=== PATIENT | male | born 1950 | race Caucasian/White ===

== ENCOUNTER 2024-06-16 20:26 | Inpatient (IN) | payer OTHER ==
[~2024-06-16] VITALS: Ht 175.3 cm; Wt 58.1 kg
[~2024-06-16 20:26] MED LIST: ACET-9525 PO; LEVO0.0211 PO; METH100S16 SL; MORP10SO PO; ONDA4TAB12 PO
[2024-06-16 20:51] VITALS: BP 101/53; PULSE 86; RESP 16; TEMP 97.3; O2SAT 99
[2024-06-16] MEDS: NACL 0.9% 1,000 ML IV ONE (23:51)
[2024-06-17 00:10] LABS: BASOPHILS % (AUTO) 0.3 % (0.0-2.0); EOSINOPHILS % (AUTO) 0.4 % (0.0-4.0); HEMATOCRIT 28.7 % (36-52); HEMOGLOBIN 9.7 g/dL (12.0-18.0); LYMPHOCYTES # (AUTO) 1.1 K/uL (2.0-11.5); LYMPHOCYTES % (AUTO) 10.5 % (20.5-51.1); MEAN CORPUSCULAR HEMOGLOBIN 31 pg (27-31); MEAN CORPUSCULAR HGB CONC 34 g/dL (33-37); MEAN CORPUSCULAR VOLUME 92.6 fL (80-94); MONOCYTES # (AUTO) 1.2 K/uL (0.8-1.0); MONOCYTES % (AUTO) 11.2 % (1.7-9.3); NEUTROPHILS % (AUTO) 77.6 % (42.2-75.2); PLATELET COUNT (AUTO) 176 K/uL (140-450); RED CELL DISTRIBUTION WIDTH 29.9 % (11.6-13.7); WHITE BLOOD COUNT (AUTO) 10.3 K/uL (4.8-10.8)
[2024-06-17 00:31] LABS: ANION GAP 8.5 (8-16); CARBON DIOXIDE 29.3 mmol/L (21-32); CHLORIDE 96 mmol/L (98-107); CREATININE 0.8 mg/dL (0.6-1.3); GLUCOSE 140 mg/dL (74-106); SODIUM SERUM 131 mmol/L (136-145); UREA NITROGEN, BLOOD 16 mg/dL (7-18)
[2024-06-17 00:35] LABS: POTASSIUM 2.8 mmol/L (3.5-5.1)
[2024-06-17 00:39] LABS: ALBUMIN 2.1 g/dL (3.4-5.0); BILIRUBIN,DIRECT 0.2 mg/dL (0.0-0.3); TOTAL BILIRUBIN 0.4 mg/dL (0.0-1.0); TOTAL PROTEIN, SERUM 5.9 g/dL (6.4-8.2)
[2024-06-17 00:51] LABS: LACTIC ACID 2.5 mmol/L (0.4-2.0)
[2024-06-17] MEDS: POTASSIUM PHOSPHATE 15 MM in NACL 0.9% 250 ML IV ONE (01:05)
[2024-06-17] MEDS ORDERED: METHOCARBAMOL SL PRN ×2 (06:00→06:15)
[2024-06-17] MEDS ORDERED: ACETAMINOPHEN 325 MG TAB PO PRN (06:00)
[2024-06-17] MEDS ORDERED: ONDANSETRON 4 MG/2 ML VIAL IVP PRN (06:00)
[2024-06-17] MEDS ORDERED: HYDROcodone/APAP 5/325 MG 1 TAB TAB PO PRN (06:00)
[2024-06-17] MEDS: LEVOTHYROXINE 0.025 MG TAB PO SCH (06:42)
[2024-06-17 07:45] VITALS: PULSE 93
[2024-06-17 08:00] VITALS: BP 106/59; PULSE 93; RESP 16; TEMP 98.4; O2SAT 95
[2024-06-17 08:09] LABS: MAGNESIUM 1.4 mg/dL (1.8-2.4)
[2024-06-17] MEDS: DOCUSATE SODIUM 100 MG GELCAP PO SCH (09:00)
[2024-06-17] MEDS ORDERED: TPN PER PHARMACY MC PRN (09:20)
[2024-06-17] MEDS ORDERED: COMMUNICATION ORDER MC SCH (09:25)
[2024-06-17 10:39] LABS: BASOPHILS % (AUTO) 0.2 % (0.0-2.0); EOSINOPHILS # (AUTO) 0.1 K/uL (0-0.4); EOSINOPHILS % (AUTO) 0.9 % (0.0-4.0); HEMATOCRIT 29.2 % (36-52); HEMOGLOBIN 9.9 g/dL (12.0-18.0); LYMPHOCYTES # (AUTO) 1.1 K/uL (2.0-11.5); MEAN CORPUSCULAR HEMOGLOBIN 31 pg (27-31); MEAN CORPUSCULAR HGB CONC 34 g/dL (33-37); MEAN CORPUSCULAR VOLUME 92.6 fL (80-94); MONOCYTES # (AUTO) 1.1 K/uL (0.8-1.0); MONOCYTES % (AUTO) 10.7 % (1.7-9.3); NEUTROPHILS # (AUTO) 8.4 K/uL (1.8-7.7); NEUTROPHILS % (AUTO) 78.2 % (42.2-75.2); PLATELET COUNT (AUTO) 171 K/uL (140-450); RED BLOOD CELL COUNT(AUTO) 3.15 MIL/uL (4.20-6.10); RED CELL DISTRIBUTION WIDTH 29.7 % (11.6-13.7); WHITE BLOOD COUNT (AUTO) 10.7 K/uL (4.8-10.8)
[2024-06-17 10:59] LABS: ALANINE AMINOTRANSFERASE 7 U/L (12-78); ALBUMIN 1.7 g/dL (3.4-5.0); ALKALINE PHOSPHATASE 109 U/L (50-136); ASPARTATE AMINOTRANSFERASE 16 U/L (15-37); CALCIUM 7.5 mg/dL (8.5-10.1); CHLORIDE 98 mmol/L (98-107); CREATININE 0.6 mg/dL (0.6-1.3); GLUCOSE 160 mg/dL (74-106); SODIUM SERUM 131 mmol/L (136-145); TOTAL BILIRUBIN 0.4 mg/dL (0.0-1.0); TOTAL PROTEIN, SERUM 5.4 g/dL (6.4-8.2); UREA NITROGEN, BLOOD 14 mg/dL (7-18)
[2024-06-17 12:00] VITALS: BP 99/53; PULSE 86; PULSE 90; RESP 16; TEMP 98.8; O2SAT 96
[2024-06-17] MEDS: MAG SULF 2000 MG/WATER PREMIX 50 ML IV SCH ×2 (12:19→15:05)
[2024-06-17] MEDS ORDERED: NACL 0.9% 500 ML IV SCH (14:20)
[2024-06-17] MEDS ORDERED: INSULIN LISPRO SLIDING SCALE 100 UNITS/ML VIAL SUBQ PRN (14:25)
[2024-06-17] MEDS ORDERED: DEXTROSE 50% 50 ML SYR IVP PRN (14:25)
[2024-06-17] MEDS ORDERED: POTASSIUM PHOSPHATE 15 MM in NACL 0.9% 250 ML IV SCH (15:30)
[2024-06-17 16:00] VITALS: BP 95/54; PULSE 81; PULSE 90; RESP 16; TEMP 98.6; O2SAT 94
[2024-06-17] MEDS ORDERED: BLOOD GLUCOSE MONITORING 1 DEV DEV FS SCH (16:30)
[2024-06-17] MEDS: ERTAPENEM SODIUM 1,000 MG in NACL 0.9% 50 ML IV SCH (16:57)
[2024-06-17] MEDS: POTASSIUM PHOSPHATE 15 MM in NACL 0.9% 250 ML IV SCH (17:58)
[2024-06-17] MEDS: MULTIVITAMIN-12 10 ML in DEXTROSE 50% 600 ML, AMINO ACIDS 8.5% 500 ML, FAT EMULSION 20%... IV SCH (19:59)
[2024-06-17 20:00] VITALS: BP 109/61; PULSE 93; PULSE 96; RESP 18; TEMP 98.2; O2SAT 95
[2024-06-17] MEDS: BLOOD GLUCOSE MONITORING 1 DEV DEV MC SCH (20:17)
[2024-06-18] VITALS: BP 112/61; PULSE 112; PULSE 91; RESP 18; TEMP 97.3; O2SAT 95
[2024-06-18 04:00] VITALS: BP 106/59; PULSE 89; PULSE 92; RESP 18; TEMP 97.3; O2SAT 93
[2024-06-18 06:06] LABS: BASOPHILS # (AUTO) 0.1 K/uL (0.00-0.22); BASOPHILS % (AUTO) 0.6 % (0.0-2.0); CALCIUM 7.7 mg/dL (8.5-10.1); CARBON DIOXIDE 28.9 mmol/L (21-32); CHLORIDE 99 mmol/L (98-107); CREATININE 0.6 mg/dL (0.6-1.3); EOSINOPHILS # (AUTO) 0.1 K/uL (0-0.4); GLUCOSE 133 mg/dL (74-106); HEMATOCRIT 29.9 % (36-52); HEMOGLOBIN 10.1 g/dL (12.0-18.0); LYMPHOCYTES # (AUTO) 1.3 K/uL (2.0-11.5); LYMPHOCYTES % (AUTO) 11.1 % (20.5-51.1); MEAN CORPUSCULAR HEMOGLOBIN 31 pg (27-31); MEAN CORPUSCULAR HGB CONC 34 g/dL (33-37); MONOCYTES % (AUTO) 8.6 % (1.7-9.3); NEUTROPHILS % (AUTO) 78.7 % (42.2-75.2); PLATELET COUNT (AUTO) 179 K/uL (140-450); POTASSIUM 3.9 mmol/L (3.5-5.1); RED BLOOD CELL COUNT(AUTO) 3.22 MIL/uL (4.20-6.10); RED CELL DISTRIBUTION WIDTH 30.2 % (11.6-13.7); SODIUM SERUM 132 mmol/L (136-145); UREA NITROGEN, BLOOD 12 mg/dL (7-18); WHITE BLOOD COUNT (AUTO) 11.5 K/uL (4.8-10.8)
[2024-06-18 06:09] LABS: MAGNESIUM 1.9 mg/dL (1.8-2.4); PHOSPHORUS 2.6 mg/dL (2.5-4.9)
[2024-06-18 08:00] VITALS: BP 107/54; PULSE 90; RESP 18; TEMP 97.3; O2SAT 94; O2SAT 96
[2024-06-18] MEDS: HYDROcodone/APAP 5/325 MG 1 TAB TAB PO PRN (08:38)
[2024-06-18 12:00] VITALS: BP 139/64; PULSE 84; RESP 18; TEMP 97; O2SAT 94; O2SAT 95
[2024-06-18 12:38] LABS: APPEARANCE,URINE CLEAR (CLEAR); BILIRUBIN,URINE NEGATIVE (NEGATIVE); BLOOD, URINE NEGATIVE (NEGATIVE); COLOR,URINE YELLOW (YELLOW); LEUKOCYTE ESTERASE ,URINE NEGATIVE (NEGATIVE); NITRITE, URINE NEGATIVE (NEGATIVE); PROTEIN,URINE NEGATIVE (NEGATIVE); UGLUCOSE TRACE (NEGATIVE); UROBILINOGEN,URINE 0.2 EU/dL (0.2 - 1)
[2024-06-18 13:37] LABS: BACTERIA,URINE 0-2 /HPF (None Seen); RBC,URINE 0-5 /HPF (0-5); SQUAMOUS EPITHELIAL CELL,UR 0-3 (FEW) /LPF (0-3 (FEW)); WBC,URINE 0-5 /HPF (0-5)
[2024-06-18 16:00] VITALS: BP 151/62; PULSE 85; PULSE 89; RESP 18; TEMP 98.1; O2SAT 96
[2024-06-18] MEDS: MULTIVITAMIN-12 10 ML in DEXTROSE 50% 600 ML, AMINO ACIDS 8.5% 500 ML, FAT EMULSION 20%... IV SCH (19:55)
[2024-06-18 20:00] VITALS: BP 140/63; PULSE 96; RESP 18; TEMP 98.3; O2SAT 94
[2024-06-19] VITALS: BP 134/64; PULSE 99; RESP 18; TEMP 97.8; O2SAT 95
[2024-06-19 04:00] VITALS: BP 141/67; PULSE 92; PULSE 94; RESP 18; TEMP 98.1; O2SAT 93
[2024-06-19 07:09] LABS: BASOPHILS % (AUTO) 0.3 % (0.0-2.0); EOSINOPHILS # (AUTO) 0.1 K/uL (0-0.4); EOSINOPHILS % (AUTO) 0.5 % (0.0-4.0); HEMOGLOBIN 10.2 g/dL (12.0-18.0); LYMPHOCYTES # (AUTO) 1.4 K/uL (2.0-11.5); LYMPHOCYTES % (AUTO) 9.5 % (20.5-51.1); MEAN CORPUSCULAR HEMOGLOBIN 31 pg (27-31); MEAN CORPUSCULAR HGB CONC 33 g/dL (33-37); MEAN CORPUSCULAR VOLUME 93.9 fL (80-94); MONOCYTES % (AUTO) 6.8 % (1.7-9.3); NEUTROPHILS # (AUTO) 12.4 K/uL (1.8-7.7); NEUTROPHILS % (AUTO) 82.9 % (42.2-75.2); PLATELET COUNT (AUTO) 241 K/uL (140-450); RED BLOOD CELL COUNT(AUTO) 3.31 MIL/uL (4.20-6.10); RED CELL DISTRIBUTION WIDTH 29.4 % (11.6-13.7)
[2024-06-19 07:24] LABS: ALANINE AMINOTRANSFERASE 11 U/L (12-78); ALBUMIN 1.7 g/dL (3.4-5.0); ALKALINE PHOSPHATASE 132 U/L (50-136); ANION GAP 6.7 (8-16); ASPARTATE AMINOTRANSFERASE 27 U/L (15-37); CALCIUM 7.8 mg/dL (8.5-10.1); CARBON DIOXIDE 29.7 mmol/L (21-32); CHLORIDE 99 mmol/L (98-107); CREATININE 0.7 mg/dL (0.6-1.3); GLUCOSE 151 mg/dL (74-106); MAGNESIUM 1.8 mg/dL (1.8-2.4); PHOSPHORUS 2.4 mg/dL (2.5-4.9); POTASSIUM 4.4 mmol/L (3.5-5.1); SODIUM SERUM 131 mmol/L (136-145); TOTAL BILIRUBIN 0.5 mg/dL (0.0-1.0); TOTAL PROTEIN, SERUM 5.6 g/dL (6.4-8.2); TRIGLYCERIDES 94 mg/dL (30-150); UREA NITROGEN, BLOOD 11 mg/dL (7-18)
[2024-06-19 08:00] VITALS: BP 119/60; PULSE 94; RESP 18; TEMP 97.7; O2SAT 100
[2024-06-19 08:06] LABS: HYPOCHROMASIA 1+; OVALOCYTES 1+; TARGET CELLS 1+
[2024-06-19 12:00] VITALS: BP 135/59; PULSE 95; RESP 22; TEMP 98.5; O2SAT 98
[2024-06-19] MEDS: INSULIN LISPRO SLIDING SCALE 100 UNITS/ML VIAL SUBQ PRN (12:19)
[2024-06-19 16:00] VITALS: BP 134/54; PULSE 97; RESP 22; TEMP 98.4; O2SAT 99
[2024-06-19] MEDS: MULTIVITAMIN-12 10 ML in DEXTROSE 50% 720 ML, AMINO ACIDS 8.5% 570 ML, FAT EMULSION 20%... IV SCH (19:54)
[2024-06-19 20:00] VITALS: BP 126/58; PULSE 91; PULSE 96; RESP 18; TEMP 98; O2SAT 94
[2024-06-20] VITALS: BP 132/59; PULSE 94; PULSE 96; RESP 18; TEMP 98.2; O2SAT 93
[2024-06-20 04:00] VITALS: BP 131/60; PULSE 107; PULSE 96; RESP 18; TEMP 97.8; O2SAT 93
[2024-06-20 07:07] LABS: ANION GAP 6.6 (8-16); CALCIUM 7.7 mg/dL (8.5-10.1); CARBON DIOXIDE 29.1 mmol/L (21-32); CHLORIDE 99 mmol/L (98-107); CREATININE 0.7 mg/dL (0.6-1.3); GLUCOSE 124 mg/dL (74-106); POTASSIUM 3.7 mmol/L (3.5-5.1); SODIUM SERUM 131 mmol/L (136-145); UREA NITROGEN, BLOOD 11 mg/dL (7-18)
[2024-06-20 07:12] LABS: BASOPHILS # (AUTO) 0.1 K/uL (0.00-0.22); BASOPHILS % (AUTO) 0.4 % (0.0-2.0); EOSINOPHILS # (AUTO) 0.1 K/uL (0-0.4); EOSINOPHILS % (AUTO) 0.5 % (0.0-4.0); HEMATOCRIT 33.2 % (36-52); HEMOGLOBIN 10.8 g/dL (12.0-18.0); LYMPHOCYTES # (AUTO) 1.5 K/uL (2.0-11.5); LYMPHOCYTES % (AUTO) 9.9 % (20.5-51.1); MEAN CORPUSCULAR HEMOGLOBIN 31 pg (27-31); MEAN CORPUSCULAR HGB CONC 33 g/dL (33-37); MONOCYTES # (AUTO) 0.9 K/uL (0.8-1.0); MONOCYTES % (AUTO) 5.8 % (1.7-9.3); NEUTROPHILS # (AUTO) 12.5 K/uL (1.8-7.7); NEUTROPHILS % (AUTO) 83.4 % (42.2-75.2); PLATELET COUNT (AUTO) 265 K/uL (140-450); RED BLOOD CELL COUNT(AUTO) 3.53 MIL/uL (4.20-6.10); RED CELL DISTRIBUTION WIDTH 29.5 % (11.6-13.7)
[2024-06-20 07:18] LABS: MAGNESIUM 1.7 mg/dL (1.8-2.4); PHOSPHORUS 2.5 mg/dL (2.5-4.9)
[2024-06-20 08:00] VITALS: BP 141/62; PULSE 95; PULSE 97; RESP 18; TEMP 97.7; O2SAT 93
[2024-06-20 12:00] VITALS: BP 141/61; PULSE 105; PULSE 99; RESP 18; TEMP 98.7; O2SAT 97
[2024-06-20 16:00] VITALS: BP 139/57; PULSE 96; PULSE 98; RESP 18; TEMP 98.4; O2SAT 94
[2024-06-20 20:00] VITALS: BP 126/65; PULSE 100; PULSE 91; PULSE 98; RESP 18; TEMP 97.8; O2SAT 93; O2SAT 94
[2024-06-21] VITALS: BP 131/66; PULSE 102; PULSE 99; RESP 18; TEMP 97.6; O2SAT 93
[2024-06-21] MEDS: MAG SULF 2000 MG/WATER PREMIX 50 ML IV SCH (01:15)
[2024-06-21 04:00] VITALS: BP 111/66; PULSE 90; PULSE 98; RESP 18; TEMP 96.5; O2SAT 93
[2024-06-21 06:26] LABS: ANION GAP 11.2 (8-16); CALCIUM 7.6 mg/dL (8.5-10.1); CARBON DIOXIDE 22.9 mmol/L (21-32); CHLORIDE 99 mmol/L (98-107); CREATININE 0.7 mg/dL (0.6-1.3); GLUCOSE 140 mg/dL (74-106); POTASSIUM 4.1 mmol/L (3.5-5.1); SODIUM SERUM 129 mmol/L (136-145); UREA NITROGEN, BLOOD 11 mg/dL (7-18)
[2024-06-21 06:44] LABS: MAGNESIUM 1.9 mg/dL (1.8-2.4); PHOSPHORUS 2.7 mg/dL (2.5-4.9)
[2024-06-21 08:00] VITALS: BP 151/72; PULSE 91; PULSE 95; PULSE 97; RESP 18; TEMP 97.1; O2SAT 94; O2SAT 96
[2024-06-21 12:00] VITALS: BP 142/67; PULSE 91; PULSE 92; RESP 18; TEMP 97.9; O2SAT 93
[2024-06-21 16:00] VITALS: BP 143/71; PULSE 90; PULSE 92; RESP 18; TEMP 98; O2SAT 98
[2024-06-21 20:00] VITALS: BP 117/61; PULSE 91; PULSE 92; RESP 18; TEMP 97.9; O2SAT 93; O2SAT 94
[2024-06-22] VITALS: BP 115/66; PULSE 93; RESP 18; TEMP 98.7; O2SAT 93
[2024-06-22 04:00] VITALS: BP 123/69; PULSE 90; PULSE 91; RESP 18; TEMP 98.5; O2SAT 93
[2024-06-22 06:46] LABS: ANION GAP 8.5 (8-16); CALCIUM 7.9 mg/dL (8.5-10.1); CARBON DIOXIDE 27.4 mmol/L (21-32); CHLORIDE 99 mmol/L (98-107); CREATININE 0.7 mg/dL (0.6-1.3); GLUCOSE 131 mg/dL (74-106); POTASSIUM 3.9 mmol/L (3.5-5.1); SODIUM SERUM 131 mmol/L (136-145); UREA NITROGEN, BLOOD 11 mg/dL (7-18)
[2024-06-22 07:13] LABS: MAGNESIUM 1.9 mg/dL (1.8-2.4); PHOSPHORUS 2.9 mg/dL (2.5-4.9)
[2024-06-22 08:00] VITALS: BP 122/64; PULSE 100; RESP 18; TEMP 98.7; O2SAT 94
[2024-06-22 11:34] LABS: BASOPHILS # (AUTO) 0.2 K/uL (0.00-0.22); BASOPHILS % (AUTO) 1.2 % (0.0-2.0); EOSINOPHILS # (AUTO) 0.1 K/uL (0-0.4); EOSINOPHILS % (AUTO) 0.8 % (0.0-4.0); HEMATOCRIT 32.2 % (36-52); HEMOGLOBIN 10.5 g/dL (12.0-18.0); LYMPHOCYTES % (AUTO) 13.2 % (20.5-51.1); MEAN CORPUSCULAR HEMOGLOBIN 31 pg (27-31); MEAN CORPUSCULAR HGB CONC 33 g/dL (33-37); MONOCYTES # (AUTO) 0.9 K/uL (0.8-1.0); NEUTROPHILS # (AUTO) 11.7 K/uL (1.8-7.7); NEUTROPHILS % (AUTO) 78.8 % (42.2-75.2); PLATELET COUNT (AUTO) 352 K/uL (140-450); RED BLOOD CELL COUNT(AUTO) 3.39 MIL/uL (4.20-6.10); RED CELL DISTRIBUTION WIDTH 27.5 % (11.6-13.7); WHITE BLOOD COUNT (AUTO) 14.9 K/uL (4.8-10.8)
[2024-06-22 11:52] LABS: ANION GAP 6.5 (8-16); CALCIUM 7.7 mg/dL (8.5-10.1); CARBON DIOXIDE 28.4 mmol/L (21-32); CHLORIDE 99 mmol/L (98-107); CREATININE 0.6 mg/dL (0.6-1.3); GLUCOSE 138 mg/dL (74-106); POTASSIUM 3.9 mmol/L (3.5-5.1); SODIUM SERUM 130 mmol/L (136-145); UREA NITROGEN, BLOOD 12 mg/dL (7-18)
[2024-06-22 12:00] VITALS: BP 132/66; PULSE 91; RESP 18; TEMP 97.8; O2SAT 93
[2024-06-22 16:00] VITALS: BP 137/63; PULSE 86; RESP 18; TEMP 98.1; O2SAT 94
[2024-06-22] MEDS: ERTAPENEM SODIUM 1,000 MG in NACL 0.9% 50 ML IV SCH (17:58)
[2024-06-22 20:00] VITALS: BP 121/64; PULSE 89; PULSE 90; RESP 18; TEMP 98.2; O2SAT 94
[2024-06-23] VITALS: BP 114/58; PULSE 91; RESP 18; TEMP 97.9; O2SAT 95
[2024-06-23 04:00] VITALS: BP 120/62; PULSE 89; PULSE 90; RESP 18; TEMP 97.4; O2SAT 95
[2024-06-23 06:36] LABS: ANION GAP 11.5 (8-16); CALCIUM 7.5 mg/dL (8.5-10.1); CARBON DIOXIDE 25.4 mmol/L (21-32); CHLORIDE 100 mmol/L (98-107); CREATININE 0.7 mg/dL (0.6-1.3); GLUCOSE 139 mg/dL (74-106); POTASSIUM 3.9 mmol/L (3.5-5.1); SODIUM SERUM 133 mmol/L (136-145); UREA NITROGEN, BLOOD 12 mg/dL (7-18)
[2024-06-23 06:38] LABS: MAGNESIUM 1.7 mg/dL (1.8-2.4); PHOSPHORUS 3.4 mg/dL (2.5-4.9)
[2024-06-23 08:00] VITALS: BP 154/69; PULSE 91; PULSE 98; RESP 20; TEMP 99.5; O2SAT 98
[2024-06-23 09:45] LABS: INR 1.17 (0.8-1.2); PARTIAL THROMBOPLASTIN TIME 26.9 secs (22-35.6); PROTHROMBIN TIME 12.2 secs (10.8-13.4)
[2024-06-23 12:00] VITALS: BP 132/58; PULSE 100; RESP 20; TEMP 98; O2SAT 97
[2024-06-23 16:00] VITALS: BP 123/56; PULSE 92; RESP 20; TEMP 97.9; O2SAT 96
[2024-06-23 20:00] VITALS: BP 108/64; PULSE 94; RESP 18; TEMP 98; O2SAT 94
[2024-06-24] VITALS: BP 119/66; PULSE 92; RESP 18; TEMP 97.5; O2SAT 94
[2024-06-24 04:00] VITALS: BP 117/72; PULSE 94; RESP 18; TEMP 98.1; O2SAT 99
[2024-06-24 06:40] LABS: BASOPHILS # (AUTO) 0.1 K/uL (0.00-0.22); BASOPHILS % (AUTO) 0.9 % (0.0-2.0); EOSINOPHILS # (AUTO) 0.1 K/uL (0-0.4); EOSINOPHILS % (AUTO) 1.3 % (0.0-4.0); HEMATOCRIT 27.2 % (36-52); HEMOGLOBIN 9.2 g/dL (12.0-18.0); LYMPHOCYTES # (AUTO) 1.7 K/uL (2.0-11.5); LYMPHOCYTES % (AUTO) 16.3 % (20.5-51.1); MEAN CORPUSCULAR HEMOGLOBIN 32 pg (27-31); MEAN CORPUSCULAR HGB CONC 34 g/dL (33-37); MEAN CORPUSCULAR VOLUME 95.3 fL (80-94); MONOCYTES % (AUTO) 9.6 % (1.7-9.3); NEUTROPHILS # (AUTO) 7.6 K/uL (1.8-7.7); NEUTROPHILS % (AUTO) 71.9 % (42.2-75.2); PLATELET COUNT (AUTO) 271 K/uL (140-450); RED BLOOD CELL COUNT(AUTO) 2.85 MIL/uL (4.20-6.10); RED CELL DISTRIBUTION WIDTH 25.9 % (11.6-13.7); WHITE BLOOD COUNT (AUTO) 10.6 K/uL (4.8-10.8)
[2024-06-24 07:08] LABS: ANION GAP 9.8 (8-16); CALCIUM 7.6 mg/dL (8.5-10.1); CARBON DIOXIDE 26.3 mmol/L (21-32); CHLORIDE 100 mmol/L (98-107); CREATININE 0.7 mg/dL (0.6-1.3); GLUCOSE 125 mg/dL (74-106); POTASSIUM 4.1 mmol/L (3.5-5.1); SODIUM SERUM 132 mmol/L (136-145); UREA NITROGEN, BLOOD 11 mg/dL (7-18)
[2024-06-24 07:23] LABS: MAGNESIUM 1.5 mg/dL (1.8-2.4); PHOSPHORUS 3.4 mg/dL (2.5-4.9)
[2024-06-24 08:00] VITALS: BP 132/59; PULSE 86; PULSE 87; RESP 18; TEMP 98.4; O2SAT 93; O2SAT 95
[2024-06-24] MEDS: MAG SULF 2000 MG/WATER PREMIX 50 ML IV SCH (13:31)
[2024-06-24 16:00] VITALS: BP 132/55; PULSE 84; RESP 18; TEMP 99.2; O2SAT 94
[2024-06-24 20:00] VITALS: BP 111/65; PULSE 86; PULSE 91; RESP 18; TEMP 98.2; O2SAT 93; O2SAT 95
[2024-06-24 21:30] VITALS: BP 105/60; PULSE 92; RESP 18; TEMP 98; O2SAT 92
[2024-06-25 04:00] VITALS: BP 131/62; PULSE 90; RESP 20; TEMP 98.2; O2SAT 90
[2024-06-25 06:14] LABS: BASOPHILS # (AUTO) 0.1 K/uL (0.00-0.22); EOSINOPHILS # (AUTO) 0.2 K/uL (0-0.4); EOSINOPHILS % (AUTO) 1.7 % (0.0-4.0); HEMATOCRIT 27.3 % (36-52); HEMOGLOBIN 9.2 g/dL (12.0-18.0); LYMPHOCYTES # (AUTO) 1.5 K/uL (2.0-11.5); LYMPHOCYTES % (AUTO) 15.5 % (20.5-51.1); MEAN CORPUSCULAR HEMOGLOBIN 32 pg (27-31); MEAN CORPUSCULAR HGB CONC 34 g/dL (33-37); MEAN CORPUSCULAR VOLUME 95.2 fL (80-94); MONOCYTES % (AUTO) 10.6 % (1.7-9.3); NEUTROPHILS # (AUTO) 6.7 K/uL (1.8-7.7); NEUTROPHILS % (AUTO) 71.2 % (42.2-75.2); PLATELET COUNT (AUTO) 238 K/uL (140-450); RED BLOOD CELL COUNT(AUTO) 2.87 MIL/uL (4.20-6.10); RED CELL DISTRIBUTION WIDTH 25.1 % (11.6-13.7); WHITE BLOOD COUNT (AUTO) 9.4 K/uL (4.8-10.8)
[2024-06-25 06:32] LABS: ANION GAP 9.7 (8-16); CALCIUM 7.7 mg/dL (8.5-10.1); CARBON DIOXIDE 26.2 mmol/L (21-32); CHLORIDE 99 mmol/L (98-107); CREATININE 0.7 mg/dL (0.6-1.3); GLUCOSE 115 mg/dL (74-106); POTASSIUM 3.9 mmol/L (3.5-5.1); SODIUM SERUM 131 mmol/L (136-145); UREA NITROGEN, BLOOD 12 mg/dL (7-18)
[2024-06-25 08:00] VITALS: BP 147/60; PULSE 87; RESP 18; TEMP 98.1; O2SAT 94
== END 2024-06-25 13:53 | disposition hospice, home (50) | DRG 371 ==
LOC: MED 20:26 → MMU 06-17 06:03 → MED 06-17 06:16 → MMU 06-17 11:22
PROVIDERS: ADMIT Student in an Organized Health Care Education/Training Program; ATTEND Student in an Organized Health Care Education/Training Program
DX: K65.1 Peritoneal abscess (principal); G93.41 Metabolic encephalopathy; E87.1 Hypo-osmolality and hyponatremia; C18.9 Malignant neoplasm of colon, unspecified; E44.0 Moderate protein-calorie malnutrition; Z68.1 Body mass index [BMI] 19.9 or less, adult; E87.20 Acidosis, unspecified; K65.9 Peritonitis, unspecified; K52.9 Noninfective gastroenteritis and colitis, unspecified; E87.6 Hypokalemia; E83.39 Other disorders of phosphorus metabolism; I10 Essential (primary) hypertension; E11.9 Type 2 diabetes mellitus without complications; E03.9 Hypothyroidism, unspecified; Z88.0 Allergy status to penicillin; Z85.038 Personal history of other malignant neoplasm of large intestine; Z91.041 Radiographic dye allergy status; Z79.899 Other long term (current) drug therapy
CPT/HCPCS: 36415; 71045; 74150; 80048; 80053; 80076; 81001; 81003; 82040; 82948; 83605; 83735; 84100; 84478; 85025; 85610; 85730; 87040; 87081; 87086; 93005; 96361; 96365; 97110; 97112; 97163-GP; 97530; 99285; A9153; J1335; J1644; J1815; J3475; J7030; Q0092